=== PATIENT | female | born 1995 | race Two or more races ===

== ENCOUNTER 2019-07-04 09:48 | Inpatient (IN) | payer MEDICAID ==
[~2019-07-04] VITALS: Ht 160 cm; Wt 79.4 kg
[2019-07-04] MEDS ORDERED: DEXT 5%/LACTATED RINGERS 1,000 ML IV SCH (10:16)
[2019-07-04] MEDS ORDERED: RHO(D) IMMUNE GLOBULIN 300 MCG/SYR IM ONE (10:30)
[2019-07-04] MEDS ORDERED: LIDOCAINE HCL 1% 20ML VIAL (Pyxis) INJ INFIL SCH (11:00)
[2019-07-04] MEDS ORDERED: CARBOPROST TROMETHAMINE 250 MCG/ML AMPUL IM PRN (11:00)
[2019-07-04] MEDS ORDERED: PENICILLIN G POTASSIUM 5 MMU in DEXT 5% WATER 100 ML IV SCH (11:00)
[2019-07-04] MEDS ORDERED: NALOXONE HCL 0.4 MG/ML 1ML VIAL IM PRN (11:00)
[2019-07-04] MEDS ORDERED: METHYLERGONOVINE MALEATE 0.2 MG/ML IM PRN (11:00)
[2019-07-04] MEDS ORDERED: MISOPROSTOL 100MCG TABLET VG SCH (11:00)
[2019-07-04] MEDS: LACTATED RINGERS 1,000 ML IV SCH ×2 (11:31→12:19)
[2019-07-04] MEDS: DEXT 5%/LR + PITOCIN 20UNITS/L 1,000 ML IV SCH (12:19)
[2019-07-04 13:05] LABS: BASOPHILS % 0.7 % (0.0-2.0); EOSINOPHILS % 1.4 % (0.0-5.0); HEMATOCRIT. 33.5 % (36.0-48.0); HEMOGLOBIN. 11.9 g/dL (12.0-16.0); LYMPHOCYTES % 16.4 % (20.0-50.0); MEAN CORPUSCULAR HEMOGLOBIN 33.3 pg (28.0-32.0); MEAN CORPUSCULAR VOLUME 93.9 fL (81.0-99.0); MEAN PLATELET VOLUME 10.7 fl (7.4-10.4); MONOCYTES % 8.4 % (2.0-8.0); NEUTROPHILS % 73.1 % (40.0-76.0); PLATELET 94 x1000/uL (130-400); RED BLOOD CELL COUNT 3.57 mill/uL (4.2-5.4); RED CELL DISTRIBUTION WIDTH 13.5 % (11.6-14.6)
[2019-07-04 13:21] LABS: INR 0.9; PARTIAL THROMBOPLASTIN TIME 26.4 sec (23.4-31.0); PROTHROMBIN TIME 9.7 sec (9.6-11.0)
[2019-07-04 13:21] LABS: CLARITY URINE CLEAR (CLEAR); COLOR URINE YELLOW (YELLOW); KETONES URINE NEGATIVE (NEGATIVE); LEUKOCYTE ESTERASE URINE 2+ (NEGATIVE); NITRITE URINE NEGATIVE (NEGATIVE); OCCULT BLOOD URINE NEGATIVE (NEGATIVE); PROTEIN URINE NEGATIVE (NEGATIVE); SPECIFIC GRAVITY URINE 1.018 (1.005-1.030)
[2019-07-04 13:32] LABS: *AMPHETAMINES SCREEN URINE NEGATIVE (NEGATIVE); *BARBITURATES SCREEN URINE NEGATIVE (NEGATIVE); *BENZODIAZEPINES SCREEN URINE NEGATIVE (NEGATIVE); *COCAINE SCREEN URINE NEGATIVE (NEGATIVE)
[2019-07-04 13:33] LABS: CANNABINOID URINE SCREEN NEGATIVE (NEGATIVE); METHADONE URINE SCREEN NEGATIVE (NEGATIVE); OPIATES URINE SCREEN NEGATIVE (NEGATIVE); PHENCYCLIDINE URINE SCREEN NEGATIVE (NEGATIVE)
[2019-07-04 13:51] LABS: HEPATITIS B SURFACE ANTIGEN NEGATIVE
[2019-07-04] MEDS: BUTORPHANOL TARTRATE 2 MG/ML VIAL IV PRN ×2 (20:05→22:23)
[2019-07-04] MEDS: PENICILLIN G POTASSIUM 2.5 MMU in DEXTROSE 5% WATER 50 ML IV SCH (20:06)
[2019-07-05] MEDS: PENICILLIN G POTASSIUM 2.5 MMU in DEXTROSE 5% WATER 50 ML IV SCH (00:26)
[2019-07-05] MEDS: LACTATED RINGERS 1,000 ML IV SCH (00:53)
[2019-07-05] MEDS: BUTORPHANOL TARTRATE 2 MG/ML VIAL IV PRN (00:53)
[2019-07-05 01:15] LABS: HEMATOCRIT. 35.2 % (36.0-48.0); HEMOGLOBIN. 12.7 g/dL (12.0-16.0); MEAN CORPUSCULAR HEMOGLOBIN 33.2 pg (28.0-32.0); MEAN CORPUSCULAR VOLUME 92.3 fL (81.0-99.0); MEAN PLATELET VOLUME 10.2 fl (7.4-10.4); PLATELET 90 x1000/uL (130-400); RED BLOOD CELL COUNT 3.82 mill/uL (4.2-5.4); RED CELL DISTRIBUTION WIDTH 13.4 % (11.6-14.6)
[2019-07-05 01:40] LABS: PLATELET ESTIMATE DECREASED
[2019-07-05] MEDS ORDERED: ROPIVACAINE HCL/PF EPIDURAL 200 ML EPI ONE (01:57)
[2019-07-05] MEDS ORDERED: FENTANYL CITRATE/PF 50MCG/ML 2ML VIAL ONE (02:55)
[2019-07-05] MEDS ORDERED: ROPIVACAINE HCL/PF EPIDURAL 200 ML EPI SCH (03:30)
[2019-07-05] MEDS ORDERED: IBUPROFEN 400MG TABLET PO PRN (06:15)
[2019-07-05] MEDS ORDERED: RHO(D) IMMUNE GLOBULIN 300 MCG/SYR IM PRN (06:15)
[2019-07-05] MEDS ORDERED: GLYCERIN/WITCH HAZEL LEAF MEDICATED PAD TOP PRN (06:15)
[2019-07-05] MEDS ORDERED: HEMORRHOIDAL SUPP PR PRN (06:15)
[2019-07-05] MEDS ORDERED: BISACODYL 10MG SUPP PR PRN (06:15)
[2019-07-05] MEDS ORDERED: LANOLIN OINT 7GM TUBE TOP PRN (06:15)
[2019-07-05] MEDS ORDERED: ACETAMINOPHEN WITH CODEINE 300/30MG TABLET PO PRN (06:15)
[2019-07-05] MEDS: DEXT 5%/LR + PITOCIN 20UNITS/L 1,000 ML IV SCH (07:14)
[2019-07-05] MEDS: MAGNESIUM/ALUMINUM HYDROXIDE/SIMETHICONE 30ML UDC PO SCH ×4 (08:13→22:05)
[2019-07-05] MEDS: SIMETHICONE 80MG TABLET CHEW PO SCH ×4 (08:13→22:05)
[2019-07-05 08:30] VITALS: BP 100/58
[2019-07-05 09:00] VITALS: BP 108/63
[2019-07-05 09:22] VITALS: BP 103/61
[2019-07-05] MEDS: BENZOCAINE/LANOLIN/ALOE VERA SPRAY TOP PRN ×2 (14:11→22:07)
[2019-07-05] MEDS: PRENATAL VIT/FE FUMARATE/FA TABLET PO SCH (14:11)
[2019-07-05] MEDS: IBUPROFEN 800MG TABLET PO PRN ×2 (14:12→22:06)
[2019-07-05 14:47] VITALS: BP 99/60
[2019-07-05 19:20] VITALS: BP 110/60
[2019-07-05] MEDS ORDERED: DOCUSATE SODIUM 100MG CAPSULE PO SCH (21:00)
[2019-07-05 23:30] VITALS: BP 115/65
[2019-07-06 03:02] VITALS: BP 112/63
[2019-07-06] MEDS: IBUPROFEN 800MG TABLET PO PRN ×2 (03:03→12:19)
[2019-07-06 06:53] LABS: BASOPHILS % 0.5 % (0.0-2.0); EOSINOPHILS % 1.1 % (0.0-5.0); LYMPHOCYTES % 12.3 % (20.0-50.0); MEAN CORPUSCULAR HEMOGLOBIN 33.6 pg (28.0-32.0); MEAN CORPUSCULAR VOLUME 94.3 fL (81.0-99.0); MEAN PLATELET VOLUME 10.3 fl (7.4-10.4); MONOCYTES % 7.5 % (2.0-8.0); NEUTROPHILS % 78.6 % (40.0-76.0); PLATELET 78 x1000/uL (130-400); RED BLOOD CELL COUNT 2.97 mill/uL (4.2-5.4); RED CELL DISTRIBUTION WIDTH 13.4 % (11.6-14.6)
[2019-07-06] MEDS: SIMETHICONE 80MG TABLET CHEW PO SCH (08:00)
[2019-07-06] MEDS: MAGNESIUM/ALUMINUM HYDROXIDE/SIMETHICONE 30ML UDC PO SCH ×2 (08:53→12:30)
[2019-07-06] MEDS: FERROUS SULFATE 325MG TABLET PO SCH ×2 (08:53→12:30)
[2019-07-06] MEDS: PRENATAL VIT/FE FUMARATE/FA TABLET PO SCH (08:53)
[2019-07-06 10:00] VITALS: BP 110/58
== END 2019-07-06 17:30 | disposition home or self-care (01) | DRG 560 ==
LOC: 8 EST LDRP 09:48 → OBSVTOIN 09:48 → 8EST 07-05 08:12
PROVIDERS: ADMIT Obstetrics & Gynecology; ATTEND Obstetrics & Gynecology
PROC: 10E0XZZ Delivery of Products of Conception, External Approach (ICD-10-PCS; principal; 2019-07-05)
PROC: 0KQM0ZZ Repair Perineum Muscle, Open Approach (ICD-10-PCS; 2019-07-05)
PROC: 3E0R3BZ Introduction of Anesthetic Agent into Spinal Canal, Percutaneous Approach (ICD-10-PCS; 2019-07-05)
PROC: 00HU33Z Insertion of Infusion Device into Spinal Canal, Percutaneous Approach (ICD-10-PCS; 2019-07-05)
PROC: 10907ZC Drainage of Amniotic Fluid, Therapeutic from Products of Conception, Via Natural or Artificial Opening (ICD-10-PCS; 2019-07-05)
PROC: 3E033VJ Introduction of Other Hormone into Peripheral Vein, Percutaneous Approach (ICD-10-PCS; 2019-07-05)
DX: O77.0 Labor and delivery complicated by meconium in amniotic fluid (principal); D69.6 Thrombocytopenia, unspecified; O70.1 Second degree perineal laceration during delivery; Z3A.40 40 weeks gestation of pregnancy; Z37.0 Single live birth; O99.824 Streptococcus B carrier state complicating childbirth; O99.12 Other diseases of the blood and blood-forming organs and certain disorders involving the immune mechanism complicating childbirth
CPT/HCPCS: 36415; 80305; 81003; 85025; 86592; 86703; 86762; 86850; 86900; 87340; G0378; J0595; J2540; J2590; J2795; J3010; J7060; J7120

== ENCOUNTER 2020-08-13 10:32 | Emergency (ER) | payer MEDICAID ==
[~2020-08-13] VITALS: Ht 157.5 cm; Wt 68.0 kg
[2020-08-13] MEDS ORDERED: KETOROLAC 30MG/ML VIAL IV STA (11:21)
[2020-08-13] MEDS ORDERED: ONDANSETRON HCL 4MG/2ML INJ IV STA (11:21)
[2020-08-13] MEDS ORDERED: SODIUM CHLORIDE 0.9% 1,000 ML IV ONE (11:30)
[2020-08-13 11:49] LABS: CHLORIDE 106 mEq/L (98-107)
[2020-08-13 11:52] LABS: HEMATOCRIT. 40.9 % (36.0-48.0); HEMOGLOBIN. 14.4 g/dL (12.0-16.0); MEAN CORPUSCULAR HEMOGLOBIN 30.8 pg (28.0-32.0); MEAN CORPUSCULAR VOLUME 87.4 fL (81.0-99.0); RED BLOOD CELL COUNT 4.68 mill/uL (4.2-5.4); RED CELL DISTRIBUTION WIDTH 13.2 % (11.6-14.6)
[2020-08-13] MEDS ORDERED: POTASSIUM CHLORIDE 20MEQ TABLET SR PO NR (12:15)
[2020-08-13 12:23] LABS: PLATELET ESTIMATE NORMAL
[2020-08-13 12:24] LABS: PLATELET 172 x1000/uL (130-400)
[2020-08-13 12:29] LABS: CLARITY URINE CLEAR (CLEAR); COLOR URINE YELLOW (YELLOW); KETONES URINE TRACE (NEGATIVE); LEUKOCYTE ESTERASE URINE NEGATIVE (NEGATIVE); NITRITE URINE NEGATIVE (NEGATIVE); OCCULT BLOOD URINE NEGATIVE (NEGATIVE); PH URINE 5.5 (4.5-8.0); PROTEIN URINE NEGATIVE (NEGATIVE); SPECIFIC GRAVITY URINE 1.029 (1.005-1.030); UROBILINOGEN URINE 0.2 E.U./dL (0.2-1.0)
[2020-08-13] MEDS ORDERED: ONDA4TAB11 PO (13:02)
[2020-08-13 13:32] VITALS: BP 111/75
== END 2020-08-13 14:38 | disposition home or self-care (01) ==
LOC: ER 10:32
DX: K52.9 Noninfective gastroenteritis and colitis, unspecified (principal); E86.0 Dehydration; Z79.899 Other long term (current) drug therapy
CPT/HCPCS: 36415; 80053; 81003; 81025; 83690; 85025; 96361; 96374; 96375; 99284; J1885; J2405; J7030; Z7610

== ENCOUNTER 2023-02-01 22:44 | Emergency (ER) | payer MEDICAID ==
[~2023-02-01] VITALS: Ht 160 cm; Wt 77.0 kg
[~2023-02-01 22:44] MED LIST: ONDA4TAB11 PO
[2023-02-01 23:02] VITALS: O2SAT 98
[2023-02-02 00:24] LABS: CLARITY URINE CLOUDY (CLEAR); COLOR URINE YELLOW (YELLOW); GLUCOSE URINE NEGATIVE (NEGATIVE); KETONES URINE NEGATIVE (NEGATIVE); LEUKOCYTE ESTERASE URINE 3+ (NEGATIVE); NITRITE URINE NEGATIVE (NEGATIVE); OCCULT BLOOD URINE 2+ (NEGATIVE); PROTEIN URINE NEGATIVE (NEGATIVE); UROBILINOGEN URINE 0.2 E.U./dL (0.2-1.0)
[2023-02-02 00:27] LABS: YEAST URINE NONE SEEN
[2023-02-02 01:55] LABS: SQUAMOUS EPITHELIAL CELL URINE FEW /lpf (RARE/1+)
[2023-02-02 01:58] LABS: WBC URINE 25-50 /hpf (0-2)
[2023-02-02 02:00] LABS: BACTERIA URINE 2+
[2023-02-02] MEDS ORDERED: NITR100C MT ×2 (02:06→02:09)
[2023-02-02 02:51] VITALS: BP 127/88; PULSE 90; RESP 16; TEMP 98.3
== END 2023-02-02 02:53 | disposition home or self-care (01) ==
LOC: ER 22:44
DX: N39.0 Urinary tract infection, site not specified (principal)
CPT/HCPCS: 81003; 81025; 87077; 87186; 99283